=== PATIENT | female | born 1995 | race Caucasian/White ===

== ENCOUNTER 2021-06-01 22:53 | Emergency (ER) | payer BC ==
[~2021-06-01] VITALS: Ht 162.6 cm; Wt 113.4 kg
[2021-06-01 22:58] VITALS: BP 135/74
--- NOTE | 2021-06-01 23:55 | NUR ---
PT EVALUATED BY DR. GLYNN.
[2021-06-02] MEDS ORDERED: CLOT14CR2 TP (00:47)
[2021-06-02] MEDS ORDERED: CEPH-588 PO (00:47)
--- NOTE | 2021-06-02 03:50 | NUR ---
PT CLEARED FOR DISCHARGE BY DR. GLYNN. AT TIME OF DISCHARGE PT NOT ABLE TO BE IN LOBBY OR OUTSIDE.
== END 2021-06-02 03:50 | disposition home or self-care (01) ==
LOC: MED 22:53
DX: R21 Rash and other nonspecific skin eruption (principal)
CPT/HCPCS: 99283